=== PATIENT | male | born 1950 | race Caucasian/White ===

== ENCOUNTER 2018-12-08 06:18 | Day surgery (SDC) | payer OTHER ==
[2018-11-25 18:06] VITALS: BMI 36.1
--- NOTE | 2018-11-26 09:45 | HP ---
DATE OF ADMISSION: 12/08/2018 HISTORY: A 68-year-old man admitted to the [facility] [place] to undergo bilateral laparoscopic inguinal hernia repair with mesh. The patient has gone on to develop a rather large, intermittently symptomatic mass at the level of the right groin. On examination, he has an obvious right inguinal hernia. On examination, he also has a smaller, but obvious, left inguinal hernia as well. His testes are unremarkable. His underlying GI, , or respiratory complaints to suggest predisposition to hernia formation. PAST MEDICAL HISTORY: Significant for hypertension and hypercholesterolemia. No history of heart disease, diabetes, respiratory, renal, or hepatic insufficiency. PAST SURGICAL HISTORY: Significant for laparoscopic cholecystectomy 21 years ago. ALLERGIES: None known. MEDICATIONS: The patient states he takes no medications despite his medical history. SOCIAL HISTORY: Negative tobacco. The patient did smoke up until 21 years ago. Does admit to an occasional cigar. Positive alcohol/social/described as minimal. FAMILY HISTORY: Father with a history of lung cancer. Mother age 91 with a history of diabetes. Siblings, one with coronary artery disease. REVIEW OF SYSTEMS: Nil. PHYSICAL EXAMINATION: General: Patient examined in erect supine position. Abdomen: Patient has a large right inguinal hernia, which is reducible. There is a smaller, but obvious, left inguinal hernia as well. The abdomen is soft and nontender. There is a small infraumbilical scar noted consistent with prior laparoscopic cholecystectomy. IMPRESSION: Bilateral inguinal hernia, right larger and symptomatic. PLAN: Bilateral laparoscopic inguinal hernia repair with mesh. If the procedure cannot be accomplished laparoscopically, we will proceed with open right with mesh. Indications, alternatives, and possible complications of the attending procedure reviewed. Issues that relate to the mesh, which include, but not limited to, infection, rejection, migration, and neuritides explained. Consent obtained. Patient to be seen preoperatively by Dr. Corado. Please refer to his notes for those medical details. KEVIN GOMEZ M.D. [id number] MTDD
[2018-12-08] MEDS ORDERED: TAMSULOSIN HCL 0.4 MG CAP ONE (06:52)
[2018-12-08] MEDS ORDERED: MIDAZOLAM HCL 2 MG/2 ML SINGLE DOSE VIAL ONE ×2 (07:19→07:39)
[2018-12-08] MEDS ORDERED: BUPIVACAINE HCL/PF (5 MG/ML) 30 ML VIAL IJ ONE (07:19)
[2018-12-08] MEDS ORDERED: PROPOFOL 20 ML ONE ×3 (07:39→09:26)
[2018-12-08] MEDS ORDERED: SUCCINYLCHOLINE CHLORIDE 200 MG/10 ML VIAL ONE (07:39)
[2018-12-08] MEDS ORDERED: ROCURONIUM BROMIDE 50 MG/5 ML VIAL ONE ×2 (07:39→09:02)
[2018-12-08] MEDS ORDERED: fentaNYL CITRATE 250 MCG/5 ML VIAL ONE (07:39)
[2018-12-08] MEDS ORDERED: ONDANSETRON 4 MG/2 ML VIAL ONE (07:41)
[2018-12-08] MEDS ORDERED: LIDOCAINE HCL/PF 2% SDV 5ML VIAL ONE (07:41)
[2018-12-08] MEDS ORDERED: DEXAMETHASONE SOD PHOSPHATE 4 MG/1 ML VIAL ONE (07:41)
[2018-12-08] MEDS ORDERED: ceFAZolin SODIUM 1 GM VIAL ONE (07:41)
[2018-12-08] MEDS ORDERED: ROPIVACAINE HCL 0.5% 30ML VIAL ONE (08:07)
[2018-12-08] MEDS ORDERED: oxyCODONE HCL 5 MG TABLET PO PRN ×2 (08:38)
[2018-12-08] MEDS ORDERED: ONDANSETRON 4 MG/2 ML VIAL IVPUSH PRN (08:38)
[2018-12-08] MEDS ORDERED: GLYCOPYRROLATE 0.2 MG/1 ML VIAL ONE (08:41)
[2018-12-08] MEDS ORDERED: NEOSTIGMINE METHYLSULFATE 0.5 MG/ML - 10 ML MDV ONE (08:42)
[2018-12-08] MEDS ORDERED: LACTATED RINGERS SOLUTION 1,000 ML IV SCH (08:45)
[2018-12-08 10:11] VITALS: TEMP 97.6
--- NOTE | 2018-12-08 13:48 | OP ---
DATE OF OPERATION: 12/08/2018 PREOPERATIVE DIAGNOSIS: Bilateral inguinal hernias. POSTOPERATIVE DIAGNOSIS: Right indirect inguinal hernia/left direct inguinal hernia. PROCEDURE: Bilateral laparoscopic inguinal hernia repair with mesh. OPERATING SURGEON: Kevin Rolle MD GRADUATE TEACHING ASSOCIATE: Zeferino Christianson MD ANESTHESIA: Osbaldo Owusu MD (general) HISTORY: A 68-year-old man who presents for bilateral laparoscopic inguinal hernia surgery with mesh. Indications, alternatives, and possible complications of the intendant procedure were reviewed. Consent obtained. DESCRIPTION OF PROCEDURE: With the patient in the supine position, and after general anesthesia, the abdominal wall was prepped and draped in usual sterile fashion using chlorhexidine. A small incision was made just beneath the umbilicus and off to the right of the midline. The subcutaneous tissues were . The anterior rectus sheath was identified and incised. The rectus muscle fibers were retracted laterally in both directions exposing the preperitoneal space. The dissecting balloon was then advanced in the preperitoneal space toward the pubis. The balloon was insufflated, creating the dissection. The balloon was removed leaving the structural collar in place. The preperitoneal space was insufflated to adequate pressure and volume using CO2 gas. The camera lens was passed through this port, and the preperitoneal space visualized. Under direct vision, an 11-mm port was placed in the midline midway between the umbilicus and the pubis. The operating instruments were passed through this port. Exploration of the preperitoneal space allowed recognition of the anatomy. There was a right indirect hernia noted with no right direct or femoral components noted. On the left side, there was an obvious left direct hernia with no left indirect or femoral component noted. First directing our attention to the left side, the cord was skeletonized of its cremasteric fibers, and a large cord lipoma was reduced. The left side was repaired using a piece of 4 x 6-inch Versatex mesh. The mesh was keyholed in placed in the preperitoneal space. It was fashioned on the left side with counter palpation and AbsorbaTack. The mesh was tacked superiorly to the iliopubic tract. The mesh was tacked anteriorly to the anterior abdominal wall. The mesh was tacked inferior of Coopers ligament and the pubic tubercle. The keyholed leaf of the mesh was wrapped around the cord and tacked in place reconstructing the internal ring. Now directing our attention to the contralateral side, the cord was skeletonized , and the indirect component and cord lipoma were reduced. The right side was repaired with the same meshing technique as described above for the left. At the completion of the repair, the mesh was noted to overlap in the midline. Adequate hemostasis was ensured. The low midline port was removed under direct vision. No bleeding identified. Ultimately the umbilical port site structural collar was removed, and the gas was allowed to escape from the preperitoneal space. The fascia at each of the port sites was closed using interrupted No. 1 Vicryl sutures. All skin wounds were closed using subcuticular 4-0 Biosyn sutures. Instrument and sponge counts are correct. Estimated blood loss minimal. DRAINS: None. IMPLANTS: Versatex mesh x2. Patient tolerated the procedure well, and procedure was terminated. KEVIN ROLLE M.D. [id number] MTDD
[2018-12-08 14:22] VITALS: BP 138/88; PULSE 72
== END 2018-12-08 14:32 | disposition home or self-care (01) ==
LOC: FASU 06:18
PROVIDERS: ATTEND Surgery
PROC: 0YUA4JZ Supplement Bilateral Inguinal Region with Synthetic Substitute, Percutaneous Endoscopic Approach (ICD-10-PCS; principal; 2018-12-08 08:00)
DX: K40.20 Bilateral inguinal hernia, without obstruction or gangrene, not specified as recurrent (principal)
CPT/HCPCS: 94760